=== PATIENT | male | born 1945 | race Hispanic/Latino ===

== ENCOUNTER 2017-07-21 06:29 | Day surgery (SDC) | payer MEDICARE, OTHER ==
[2017-07-07 13:43] VITALS: BMI 31.1
[2017-07-21 07:12] VITALS: RESP 18
[2017-07-21] MEDS ORDERED: Iohexol 350 MG/100 ML VIAL ONE (08:25)
[2017-07-21] MEDS ORDERED: Lidocaine 2% Inj (20ml) ONE (08:25)
[2017-07-21] MEDS ORDERED: Iohexol 350mgl/ml 50 ML ONE (08:25)
[2017-07-21] MEDS ORDERED: Midazolam 2 MG/2 ML VIAL ONE (08:49)
[2017-07-21] MEDS ORDERED: Sodium Chloride 0.9% 1,000 ML IV SCH (09:30)
[2017-07-21 09:39] VITALS: TEMP 97.5; O2SAT 93
[2017-07-21 11:28] VITALS: BP 110/73; PULSE 56
--- NOTE | 2017-07-21 17:18 | CARDCATH ---
PROCEDURE DATE: 07/21/2017 HISTORY: This is a 71-year-old man with exertional chest pain and epigastric discomfort. A stress test suggesting inferolateral ischemia and cardiac catheterization was recommended. INDICATIONS: As above. FINDINGS: 1. The left mainstem was normal. 2. The left anterior ascending artery was mildly calcified in the proximal mid segment. There was mild ectasia of the vessel. In the distal segment of LAD, there was an 80% of stenosis followed by a 70% stenosis just prior to the apical segment of the vessel. The vessel was [id number] size wrapped around the apex. The first diagonal branch was diffusely diseased with multiple 80% stenosis present in the vessel. The vessel was fairly small size. 3. The left circumflex artery gave rise to one large obtuse marginal branch. The vessel was [id number] ectatic and had a 50% stenosis in its mid portion as well. 4. The right coronary artery was dominant. The posterior ascending artery is fairly small with diffuse disease. The posterior lateral branch had mild diffuse disease as well. LEFT VENTRICULOGRAPHY: A left ventriculogram was performed with hand injection only in [place] projection. This revealed normal wall motion with ejection fraction of 65%. There was no aortic valve gradient noted on catheter pullback. Mitral regurgitation was not assessed. RIGHT FEMORAL ARTERIOGRAPHY: A right femoral arteriogram was performed in the [place] projection. This revealed no evidence of significant disease and appropriate level of arterial punch. The puncture site was then closed with deployment of an Angio-Seal device. CONCLUSION: 1. Moderate diffuse three vessel coronary artery disease with severe distal LAD disease. 2. Normal LV systolic function. RECOMMENDATIONS: At the present time, medical therapy will be attempted as an initial treatment for his coronary artery disease. If he has persistent exertional symptoms, consideration can be given to PCI of the distal LAD disease. A risk factor control is advised. Vince Liang MD cc: MD Cahvo Montemayor MD MTDD
== END 2017-07-21 12:45 | disposition home or self-care (01) ==
LOC: CATH 06:29
PROVIDERS: ATTEND Internal Medicine Cardiovascular Disease
DX: I25.10 Atherosclerotic heart disease of native coronary artery without angina pectoris (principal); I10 Essential (primary) hypertension; K21.9 Gastro-esophageal reflux disease without esophagitis
CPT/HCPCS: 36415; 86850; 86900; 93458; 99152; C1760; C1769; C2629; J1644; J2250; J3010; J7040 ×2; Q9967